=== PATIENT | male | born 1990 | race Two or more races ===

== ENCOUNTER 2016-12-17 07:00 | Emergency (ER) | payer SELFPAY ==
[~2016-12-17] VITALS: Ht 175.3 cm; Wt 99.8 kg
[2016-12-17 07:59] LABS: ADD UA MICROSCOPIC NO; KETONES,URINE NEGATIVE (NEGATIVE); LEUKOCYTE ESTERASE ,URINE NEGATIVE (NEGATIVE)
[2016-12-17 11:37] VITALS: BP 134/81
== END 2016-12-17 11:38 | disposition home or self-care (01) ==
LOC: EDSEX 07:03 → ER 07:03
DX: N50.812 Left testicular pain (principal); N43.3 Hydrocele, unspecified
CPT/HCPCS: 76870; 81001; 87491; 87591; 99285; A4606; Z7610; 81000-TC